=== PATIENT | male | born 1995 | race Caucasian/White ===

== ENCOUNTER 2024-06-30 11:34 | Emergency (ER) | payer SELFPAY ==
--- NOTE | 2024-06-30 11:37 | XR_ITS ---
WS: [id number] Exam: XR chest 1V portable [id number] Date/Time of Exam: 06/30/2024 11:53 AM Reason For Exam: cough No priors. The lungs are fully inflated and clear. Normal cardiomediastinal silhouette and regional bony elements. XR/XR chest 1V portable [id number] IMPRESSION: 1. Normal chest.
[2024-06-30 11:38] VITALS: BP 144/98; PULSE 105; RESP 16; TEMP 37.1; O2SAT 98; BMI 20.7
--- NOTE | 2024-06-30 11:40 | W.ED.URI ---
HPI - URI/Sore Throat General: Chief Complaint: Upper Respiratory Infection Stated Complaint: high fever/cough Time Seen by Provider: 06/30/24 11:37 Source: patient Mode of arrival: ambulatory Limitations: no limitations History of Present Illness: 28-year-old male states he has been having cough congestion along with high fevers over the last 2 to 3 days. States had temp up to 104. Denies any severe dyspnea denies any sore throat denies any vomiting or diarrhea. States both of his kids been sick as well. Associated symptoms: Reports chills and fever(s); Deny abdominal pain, chest pain, diarrhea, headache(s), nausea or vomiting Related Data Home Medications ?Medication ?Instructions ?Recorded ?Confirmed acetaminophen 500 mg tablet 1,500 mg PO Q6H PRN Fever Or Pain 06/30/24 06/30/24 (Tylenol Extra Strength) dextromethorphan-guaifenesin 10 10 ml PO Q4H PRN Cough 06/30/24 06/30/24 mg-100 mg/5 mL oral syrup [id number] 5 30 ml PO Q6H 06/30/24 06/30/24 mg-10 mg-325 mg/15 mL oral liquid (Daytime Cold-Flu) Allergies Allergy/AdvReac Type Severity Reaction Status Date / Time No Known Allergies Allergy Verified 06/30/24 11:41 Review of Systems Const: Reports: fever(s), chills and body aches; Denies: change in appetite ENMT: Denies: throat pain or dental pain Card: Denies: chest pain Resp: Reports: non-productive cough; Denies: dyspnea GI: Denies: abdominal pain, nausea, vomiting or diarrhea : Denies: dysuria Musc: Denies: neck pain or back pain Skin/Breast: Denies: rash Neuro: Denies: headache(s) Physical Exam Const: COMMON NORMALS: no acute distress, patient oriented x3 and healthy appearing HENMT: COMMON NORMALS: normocephalic and atraumatic HEAD & SCALP: normocephalic and atraumatic THROAT: posterior oropharynx normal Eye: COMMON NORMALS: conjunctivae normal CONJUNCTIVA: Yes conjunctivae normal Neck/C-Spine: COMMON NORMALS: full ROM and supple Chest: COMMONS NORMALS: normal inspection of the chest Resp: COMMON NORMALS: normal respiratory effort, No retractions, No use of accessory muscles and clear to auscultation bilaterally AUSCULTATION: clear to auscultation bilaterally Cardio: COMMON NORMALS: regular rate, regular rhythm and No murmurs present (Cardio) RATE: regular rate RHYTHM: regular rhythm Extremity: COMMON NORMALS: normal to inspection and full ROM Neuro: COMMON NORMALS: patient oriented x3, moves all extremities and no focal motor deficits Psych: COMMON NORMALS: mental status grossly normal, Normal thought process present and cooperative THOUGHT PROCESS: Normal thought process present Skin: COMMON NORMALS: no rashes or lesions noted and no wounds GENERAL SKIN EXAM: no rashes or lesions noted Course Vital Signs: Vital signs: Vital Signs Temperature 98.8 F 06/30/24 11:38 Pulse Rate 76 06/30/24 11:52 Respiratory Rate 16 06/30/24 11:38 Blood Pressure 144/98 06/30/24 11:38 Pulse Oximetry 94 06/30/24 11:52 Oxygen Delivery Me thod Room Air 06/30/24 11:52 MDM - URI/Sore Throat Medical Decision Making Patient presents here with influenza he has no signs of pneumonia he is well-appearing here he stable for discharge follow-up PCP return if worsening. Motrin Tylenol for the fever Medical Records I reviewed the patient's medical records. Lab Data I reviewed the patient's lab results. Radiology Impressions Chest X-Ray 06/30/24 11:37 IMPRESSION: 1. Normal chest. Laboratory Results Influenza A (PCR) Positive (Negative) 06/30/24 11:44 Influenza Type B (PCR) Negative (Negative) 06/30/24 11:44 RSV (PCR) Negative (Negative) 06/30/24 11:44 SARS-CoV-2 (PCR) Negative (Negative) 06/30/24 11:44 All radiology interpretation(s) finalized by discharge Discharge Plan Discharge Patient Disposition: Home Clinical Impression: Influenza Condition: Stable Prescriptions: No Action dextromethorphan-guaifenesin [Cough Formula DM] 10-100 mg/5 mL Syrup 10 ml PO Q4H PRN (Reason: Cough) acetaminophen [Tylenol Extra Strength] 500 mg Tablet 1,500 mg PO Q6H PRN (Reason: Fever Or Pain) Daytime Cold-Flu 5-10-325 mg/15 mL Liquid 30 ml PO Q6H Discharge Orders: Discharge ED (Routine); Ordered 06/30/24 Ordered By: Villa Perry Discharge Diet: Advance as tolerated Discharge Activity: Resume usual activity Patient Instructions: Influenza (ED) Print Language: Uzbek Coding Level of Care Code ED Technician Chemical Cleaning for Aryan Manzo
[2024-06-30] MEDS: acetaminophen 500 mg Tablet 1000 MG PO (11:51)
[2024-06-30 11:52] VITALS: PULSE 76; O2SAT 94
[2024-06-30 12:27] LABS: Influenza A POSITIVE (Negative); Influenza B NEGATIVE (Negative); Respiratory Syncytial Virus Ce NEGATIVE (Negative); SARS-CoV-2 PCR NEGATIVE (Negative)
[2024-06-30] MEDS: dexamethasone 10 mg/mL INJ IM (12:58)
[2024-06-30 13:02] VITALS: BP 139/87; PULSE 87; O2SAT 95
== END 2024-06-30 13:03 | disposition home or self-care (01) ==
PROVIDERS: Emergency Provider Emergency Medicine
DX: J10.1 Influenza due to other identified influenza virus with other respiratory manifestations (principal); Z11.52 Encounter for screening for COVID-19
CPT/HCPCS: 71045; 87637; 96372; 99284; J1100